=== PATIENT | male | born 1955 | race African-American/Black ===

== ENCOUNTER 2020-03-23 12:55 | Emergency (ER) | payer MEDICAID ==
[~2020-03-23] VITALS: Ht 160 cm; Wt 56.7 kg
[2020-03-23 13:03] VITALS: BP 130/85
--- NOTE | 2020-03-23 13:03 | NUR ---
ED Nurse Note: PT walked in to ed for C/O dog bite to left wrist. occured at 0800 this morning.
[2020-03-23] MEDS ORDERED: Bacitracin Oint UD TOPIC ONE (13:15)
[2020-03-23] MEDS ORDERED: Tetanus/Diptheria/Pertussis IM ONE (13:15)
--- NOTE | 2020-03-23 13:22 | Emergency Room Report ---
History of Present Illness General Chief Complaint: Animal Bite Source: Patient Present Illness HPI 64-year-old male with no known significant past medical history here complaining of a dog bite on dorsum of left hand that happened this morning. Patient is not up-to-date with tetanus shot. No bleeding noted. Small puncture wound noted. No pus drainage noted. Patient has full range of motion of hand and wrist. Obvious arthritic changes and nodules are noted on both wrists and hands. Denies any tingling numbness. Denies any fever and chills. Also reports of right wrist pain report that he tried to catch himself from being attacked by the dog and landed on the right wrist. Passive range of motion of right wrist, rates the pain 3 out of 10 without radiation. Denies any tingling or numbness. Patient is neurovascularly intact. Has full strength in both upper extremities.Tdap given today Allergies: Coded Allergies: No Known Allergies (Unverified , 03/23/20) COVID-19 Screening Contact w/high risk pt: No Experienced COVID-19 symptoms?: No COVID-19 Testing performed [employer]: No Patient History Past Medical History: see triage record Past Surgical History: none Pertinent Family History: none Reviewed Nursing Documentation: PMH: Agreed; PSxH: Agreed Nursing Documentation-PMH Past Medical History: No Stated History Review of Systems All Other Systems: negative except mentioned in HPI Physical Exam Vital Signs Date Time Temp Pulse Resp B/P (MAP) Pulse Ox O2 Delivery O2 Flow Rate FiO2 03/23/20 12:59 98.4 94 18 138/87 (104) 95 Room Air Sp02 EP Interpretation: reviewed, normal General Appearance: no apparent distress, alert, GCS 15, non-toxic Head: normocephalic, atraumatic Eyes: bilateral eye normal inspection, bilateral eye PERRL ENT: hearing grossly normal, normal pharynx, no angioedema, normal voice Neck: full range of motion, supple/symm/no masses Respiratory: chest non-tender, lungs clear, normal breath sounds, speaking full sentences Cardiovascular #1: regular rate, rhythm, no edema, no murmur Cardiovascular #2: 2+ radial (R), 2+ radial (L) Gastrointestinal: normal bowel sounds, non tender, soft, non-distended, no guarding, no rebound Rectal: deferred Musculoskeletal: back normal, pelvis stable, non-tender, other - Arthritic nodu les in both wrists Neurologic: alert, motor strength/tone normal, oriented x3, sensory intact, responsive, speech normal Psychiatric: judgement/insight normal, memory normal, mood/affect normal, no suicidal/homicidal ideation Skin: other - small puncture wound secondary to dog bite left hand Lymphatic: no adenopathy Procedures Splinting Splinting : Consent: Verbal Location: Right wrist Pre-Made Type: velcro Splint: wrist Pre-Proc Neuro Vasc Exam: normal Post-Proc Neuro Vasc Exam: normal Patient Tolerated: Well Complications: None Medical Decision Making PA Attestation All my diagnosis and treatment plans were reviewed ad discussed with my supervising physician Dr. Metz Diagnostic Impression: Primary Impression: Dog bite Additional Impression: Wrist sprain ER Course 64-year-old male with no known significant past medical history here complaining of a dog bite on dorsum of left hand that happened this morning. Patient is not up-to-date with tetanus shot. No bleeding noted. Small puncture wound noted. No pus drainage noted. Patient has full range of motion of hand and wrist. Obvious arthritic changes and nodules are noted on both wrists and hands. Denies any tingling numbness. Denies any fever and chills. Also reports of right wrist pain report that he tried to catch himself from being attacked by the dog and landed on the right wrist. Passive range of motion of right wrist, rates the pain 3 out of 10 without radiation. Denies any tingling or numbness. Patient is neurovascularly intact. Has full strength in both upper extremities.Tdap given today Ddx considered but are not limited to : Wrist sprain, wrist strain, wrist fracture, cellulitis, abscess, infected dog bite Vital signs: are WNL, pt. is afebrile H&PE are most consistent with: Infected dog bite, right wrist sprain ORDERS: Wrist x-ray, Augmentin, Robaxin, Motrin ED INTERVENTIONS: Wound cleaned and dressed, Velcro wrist splint applied to right wrist, Tdap given DISCHARGE: At this time pt. is stable for d/c to home. Will provide printed patient care instructions, and any necessary prescriptions. Care plan and follow up instructions have been discussed with the patient prior to discharge. Patient take medication as directed, follow-up primary care provider,if worsening symptoms return to the emergency room Other X-Ray Diagnostic Results Other X-Ray Diagnostic Results : X-Ray ordered: wrist # of Views/Limited Vs Complete: 3 View Indication: Pain EP Interpretation: Yes GILMAR Xray: Interpretation reviewed, by supervising MD, and agrees with findings. Interpretation: no dislocation, no soft tissue swelling, no fractures, other - Arthritic changes noted Impression: No acute disease Electronically Signed by: Deshawn Shukla PA-C Last Vital Signs Date Time Temp Pulse Resp B/P (MAP) Pulse Ox O2 Delivery O2 Flow Rate FiO2 03/23/20 13:03 98.4 83 16 130/85 97 Room Air Disposition: HOME, SELF-CARE Condition: Stable Scripts Amoxicillin/Potassium Clav 875-125* (AUGMENTIN 875-125 TABLET*) 1 Each Tablet 1 TAB ORAL TWICE A DAY for 7 Days, #14 TAB Prov: Deshawn Nguyen 03/23/20 Methocarbamol* (ROBAXIN-500*) 500 Mg Tablet 500 MG ORAL TID PRN for For Pain, #15 TAB 0 Refills Prov: Deshawn Nguyen 03/23/20 Ibuprofen* (MOTRIN*) 400 Mg Tablet 400 MG ORAL Q8H, #30 TAB 0 Refills Prov: Deshawn Nguyen 03/23/20 Referrals: NON PHYSICIAN (PCP) Patient Instructions: Animal Bite, Wrist Sprain Additional Instructions: Take medication as directed, follow-up with your primary care provider, if worsening symptoms return to the emergency room Deshawn Nguyen Mar 23, 2020 13:22
[2020-03-23] MEDS ORDERED: IBUPROFEN400 MG ORAL (13:23)
[2020-03-23] MEDS ORDERED: AUGMENTIN 875-1 EAC1 ORAL (13:23)
[2020-03-23] MEDS ORDERED: ROBAXIN-500MG ORAL (13:23)
[2020-03-23 13:32] VITALS: BP 122/80
--- NOTE | 2020-03-23 13:32 | NUR ---
ER DISCHARGE NOTE: Patient is cleared to be discharged per ERMD, pt is aox4, on room air, with stable vital signs. pt was given dc and prescription instructions, pt was able to verbalize understanding, pt id band removed without complications. pt is able to ambulate with steady gait. pt took all belongings.
--- NOTE | 2020-03-23 16:11 | Diagnostic Imaging Report ---
Clinical Indication:Trauma, pain Technique: 3 views of the right wrist Comparison: None Findings: There are old healed fracture deformities of the distal radius and distal ulna. No definite acute fractures. There is widening of the scapholunate distance, consistent with age-indeterminate scapholunate ligamentous injury. There is degenerative narrowing of the proximal radiocarpal joint. Impression: Old healed distal radial and ulnar fractures Widening of scapholunate distance consistent with age-indeterminate scapholunate ligamentous injury Findings discussed by phone with nurse yadiel Mabry in the emergency room at the time of interpretation
== END 2020-03-23 13:32 | disposition home or self-care (01) ==
LOC: EMR 13:13
DX: S61.452A Open bite of left hand, initial encounter (principal); S63.501A Unspecified sprain of right wrist, initial encounter; W54.0XXA Bitten by dog, initial encounter; Y93.9 Activity, unspecified; Y92.9 Unspecified place or not applicable; W01.0XXA Fall on same level from slipping, tripping and stumbling without subsequent striking against object, initial encounter; Y93.89 Activity, other specified
CPT/HCPCS: 73110; 90471; 90715; Z7502; 99283